=== PATIENT | male | born 1980 | race Caucasian/White ===

== ENCOUNTER 2024-01-26 11:07 | Emergency (ER) | payer SELFPAY ==
[2024-01-26 11:20] VITALS: RESP 18; BMI 25.1
[2024-01-26] MEDS ORDERED: KETOROLAC TROMETHAMINE 30 MG/1 ML VIAL ONE (12:38)
[2024-01-26] MEDS: KETOROLAC TROMETHAMINE 30 MG/1 ML VIAL IVPUSH ONE (12:55)
[2024-01-26] MEDS: SODIUM CHLORIDE 0.9% 500 ML INFUS.BAG IV ONE (13:06)
[2024-01-26 13:11] LABS: BASO % 0.5 % (0-2.0); EOS % 2.6 % (0-4.5); HEMATOCRIT 40.3 % (35.4-49); HEMOGLOBIN 13.4 GM/dL (11.7-16.9); LYMPH % 14.2 % (8-40); MCH 29.2 pg (25.7-33.7); MCHC 33.3 g/dl (32.0-35.9); MEAN CELL VOLUME 87.7 fl (80-96); MEAN PLT VOLUME 8.9 fl (7.5-11.1); MONO % 8.6 % (3.8-10.2); NEUT % 74.1 % (42.8-82.8); PLATELET COUNT 218 10^3/uL (134-434); RDW 13.5 % (11.9-15.9)
[2024-01-26 13:13] LABS: EPI CELLS 10 /uL (0-25.1); HYALINE CASTS 1 /uL (0-3.1); PH,URINE 5.5 (5.0-8.0); URINE APPEARANCE CLEAR; URINE BACTERIA 2 /uL (0-1359); URINE BILIRUBIN NEGATIVE (NEGATIVE); URINE COLOR YELLOW; URINE GLUCOSE (UA) NEGATIVE (NEGATIVE); URINE KETONE NEGATIVE (NEGATIVE); URINE LEUK ESTERASE TRACE (NEGATIVE); URINE NITRITE NEGATIVE (NEGATIVE); URINE PROTEIN TRACE (NEGATIVE); URINE RBC 32 /uL (0-23.9); URINE UROBILINOGEN 0.2 mg/dL (0.2-1.0); URINE WBC 13 /uL (0-25.8)
[2024-01-26 14:19] LABS: ALBUMIN 3.1 g/dl (3.4-5.0); BILIRUBIN,TOTAL 0.5 mg/dL (0.2-1); BLOOD UREA NITROGEN 20.4 mg/dL (7-18); CALCIUM 8.3 mg/dL (8.5-10.1); CREATININE 0.7 mg/dL (0.55-1.3); POTASSIUM 4.3 mmol/L (3.5-5.1); TOT PROT 7.3 g/dl (6.4-8.2)
[2024-01-26] MEDS ORDERED: AZITHROMYCIN 500 MG TABLET ONE (16:12)
[2024-01-26] MEDS: AZITHROMYCIN 250 MG TABLET PO ONE (16:15)
[2024-01-26 16:48] VITALS: BP 123/69; PULSE 83; TEMP 98.2
== END 2024-01-26 16:55 | disposition home or self-care (01) ==
LOC: JER 11:07
PROC: 3E0333Z Introduction of Anti-inflammatory into Peripheral Vein, Percutaneous Approach (ICD-10-PCS; principal; 2024-01-26)
DX: R07.81 Pleurodynia (principal); R10.9 Unspecified abdominal pain; R50.9 Fever, unspecified; J18.9 Pneumonia, unspecified organism; B00.2 Herpesviral gingivostomatitis and pharyngotonsillitis; Z20.822 Contact with and (suspected) exposure to COVID-19
CPT/HCPCS: 0241U-QW; 36415; 71046-TC-FY; 80053; 81003; 83605; 85025; 87086; 99284-25